=== PATIENT | female | born 1945 | race Caucasian/White ===

== ENCOUNTER → 2016-07-05 08:48 | Outpatient (CLI) | payer MEDICARE, OTHER ==
[2014-03-24 13:13] VITALS: BMI 31.3
[~2016-07-05 08:48] MED LIST: BAYER CHEWABLE81 MG PO; CATAPRES0.1 MG PO; FISH OIL 1,0001 CA1 PO; MULTI-DAY VITAM1 TAB PO; NAPROSYN500 MG PO; NEXIUM40 MG PO; PACERONE400 MG PO; TENORMIN100 MG PO; VITAMIN C1000 MG PO; VITAMIN E400 UNI2 PO; VYTORIN 10-40 M1 TAB PO; WELLBUTRIN SR150 MG PO
[2016-07-05 09:29] LABS: BILIRUBIN - DIRECT 0.15 mg/dL (0.00-0.30); BILIRUBIN - INDIRECT 0.51 mg/dL (0.00-1.00); BILIRUBIN - TOTAL 0.66 mg/dL (0.2-1.3); PROTEIN - SERUM 7.5 g/dL (6.4-8.2)
== END | disposition home or self-care (01) ==
LOC: D.US 08:48
PROVIDERS: Internal Medicine Gastroenterology
DX: K76.0 Fatty (change of) liver, not elsewhere classified (principal)

== ENCOUNTER → 2017-01-02 07:49 | Outpatient (CLI) | payer MEDICARE, OTHER ==
[2014-03-24 13:13] VITALS: BMI 31.3
[2017-01-02 08:57] LABS: ALBUMIN 3.6 g/dL (3.4-5.0); BILIRUBIN - DIRECT 0.11 mg/dL (0.00-0.30); BILIRUBIN - INDIRECT 0.64 mg/dL (0.00-1.00); BILIRUBIN - TOTAL 0.75 mg/dL (0.2-1.3); PROTEIN - SERUM 7.6 g/dL (6.4-8.2)
== END | disposition home or self-care (01) ==
LOC: D.US 07:49
PROVIDERS: Internal Medicine Gastroenterology
DX: K76.0 Fatty (change of) liver, not elsewhere classified (principal)

== ENCOUNTER → 2017-05-08 13:05 | Outpatient (CLI) | payer MEDICARE ==
[~2017-05-08] VITALS: Ht 170.2 cm; Wt 109.3 kg
[2017-05-08 14:52] VITALS: Ht 170.2 cm; Wt 109.3 kg
== END | disposition home or self-care (01) ==
LOC: D.FANS 13:00
DX: E66.01 Morbid (severe) obesity due to excess calories (principal)

== ENCOUNTER → 2017-07-09 08:04 | Outpatient (CLI) | payer MEDICARE, OTHER ==
[2017-05-08 14:52] VITALS: BMI 37.7
[2017-07-09 09:17] LABS: ALBUMIN 3.8 g/dL (3.4-5.0); BILIRUBIN - DIRECT 0.11 mg/dL (0.00-0.30); BILIRUBIN - INDIRECT 0.47 mg/dL (0.00-1.00); BILIRUBIN - TOTAL 0.58 mg/dL (0.2-1.3); PROTEIN - SERUM 7.5 g/dL (6.4-8.2)
== END | disposition home or self-care (01) ==
LOC: D.US 08:04
PROVIDERS: Internal Medicine Gastroenterology
DX: K76.0 Fatty (change of) liver, not elsewhere classified (principal)

== ENCOUNTER → 2017-08-09 08:58 | Outpatient (CLI) | payer MEDICARE, OTHER ==
[2017-05-08 14:52] VITALS: BMI 37.7
[~2017-08-09 08:58] MED LIST changes: +ANORO ELLIPTA1 EACH INH; +BREO ELLIPTA 11 EACH INH; +CARDIZEM120 MG PO; +CARTIA XT120 MG PO; +CINNAMON500 MG PO; +COZAAR100 MG PO; +FLOMAX0.4 MG PO; +FUROSEMIDE20 MG PO; +HYDROCODON-ACE1 EAC7 PO; +LOFIBRA134 MG PO; +LUTEIN/ZEAXANTHIN PO; +MUCINEX DM ER1 EAC1 PO; +TIAZAC/CARDIZE120 MG PO; +ZOFRAN ODT4 MG/UDTAB PO
== END | disposition home or self-care (01) ==
LOC: D.RT 08:58
DX: J44.9 Chronic obstructive pulmonary disease, unspecified (principal)

== ENCOUNTER 2017-08-16 07:45 | Outpatient (CLI) | payer MEDICARE, OTHER ==
[2017-05-08 14:52] VITALS: BMI 37.7
[~2017-08-16 07:45] MED LIST changes: -ANORO ELLIPTA1 EACH INH; -BREO ELLIPTA 11 EACH INH; -CARDIZEM120 MG PO; -CARTIA XT120 MG PO; -CINNAMON500 MG PO; -COZAAR100 MG PO; -FLOMAX0.4 MG PO; -FUROSEMIDE20 MG PO; -HYDROCODON-ACE1 EAC7 PO; -LOFIBRA134 MG PO; -LUTEIN/ZEAXANTHIN PO; -MUCINEX DM ER1 EAC1 PO; -TIAZAC/CARDIZE120 MG PO; -ZOFRAN ODT4 MG/UDTAB PO
[2017-10-09] MEDS ORDERED: MUCINEX DM ER1 EAC1 PO (08:29)
[2017-10-09] MEDS ORDERED: LUTEIN/ZEAXANTHIN PO (08:31)
[2017-10-09] MEDS ORDERED: CARTIA XT120 MG PO (08:32)
[2017-10-09] MEDS ORDERED: FLOMAX0.4 MG PO (08:35)
[2017-10-09] MEDS ORDERED: BREO ELLIPTA 11 EACH INH (08:37)
== END 2017-08-16 09:50 ==
LOC: D.OPS 07:45
DX: E66.01 Morbid (severe) obesity due to excess calories (principal)

== ENCOUNTER 2017-08-27 07:45 | Day surgery (SDC) | payer MEDICARE, OTHER ==
[~2017-08-27] VITALS: Ht 170.2 cm; Wt 113.6 kg
[2017-08-27] MEDS ORDERED: CARDIZEM120 MG PO (08:13)
[2017-08-27] MEDS ORDERED: FUROSEMIDE20 MG PO (08:13)
[2017-08-27] MEDS ORDERED: LOFIBRA134 MG PO (08:14)
[2017-08-27] MEDS ORDERED: COZAAR100 MG PO (08:14)
[2017-08-27] MEDS ORDERED: CINNAMON500 MG PO (08:15)
[2017-08-27] MEDS ORDERED: ANORO ELLIPTA1 EACH INH (08:15)
[2017-08-27 08:30] VITALS: BP 131/74; Ht 170.2 cm; Wt 113.6 kg
[2017-08-27 09:22] LABS: HEMATOCRIT 42.9 % (36.0-48.0); HEMOGLOBIN 14.2 g/dL (12-16); MCH 30.8 pg (26.0-34.0); MCHC 33.1 g/dL (31.0-37.0); MCV 93.1 fL (80.0-100.0); MEAN PLATELET VOLUME 11.6 fL (7.4-10.4); RBC 4.61 10x6/uL (4.00-5.40); RDW 13.3 % (11.5-14.5); WBC 7.5 10x3/uL (4.8-10.8)
[2017-10-09] MEDS ORDERED: MUCINEX DM ER1 EAC1 PO (08:29)
[2017-10-09] MEDS ORDERED: LUTEIN/ZEAXANTHIN PO (08:31)
[2017-10-09] MEDS ORDERED: CARTIA XT120 MG PO (08:32)
[2017-10-09] MEDS ORDERED: FLOMAX0.4 MG PO (08:35)
[2017-10-09] MEDS ORDERED: BREO ELLIPTA 11 EACH INH (08:37)
== END 2017-08-27 11:50 | disposition home or self-care (01) ==
LOC: D.OPS 07:45
PROVIDERS: Surgery
DX: K21.0 Gastro-esophageal reflux disease with esophagitis (principal); K44.9 Diaphragmatic hernia without obstruction or gangrene; K22.10 Ulcer of esophagus without bleeding; K29.50 Unspecified chronic gastritis without bleeding; K29.80 Duodenitis without bleeding; Z01.812 Encounter for preprocedural laboratory examination

== ENCOUNTER 2017-10-10 08:00 | Inpatient (IN) | payer MEDICARE, OTHER ==
[2017-10-09 09:52] LABS: HEMATOCRIT 41.3 % (36.0-48.0); HEMOGLOBIN 13.5 g/dL (12-16); MCH 30.4 pg (26.0-34.0); MCHC 32.7 g/dL (31.0-37.0); MEAN PLATELET VOLUME 10.8 fL (7.4-10.4); RBC 4.44 10x6/uL (4.00-5.40); RDW 13.1 % (11.5-14.5); WBC 6.5 10x3/uL (4.8-10.8)
[2017-10-09 10:02] LABS: CALC OSMOLALITY 283 mosm/kg (275-300); CALCIUM 8.7 mg/dL (8.5-10.1); CARBON DIOXIDE 25.9 mmol/L (21.0-32.0); CHLORIDE - SERUM 107 mmol/L (98-107); CREATININE - SERUM 0.8 mg/dL (0.6-1.3); GLUCOSE 120 mg/dL (74-106); POTASSIUM - SERUM 4.4 mmol/L (3.5-5.1); SODIUM 141 mmol/L (136-145); UREA NITROGEN 18 mg/dL (7-18); eGFR NON AFRICAN AMERICAN 75 mL/min (90-120)
[~2017-10-10] VITALS: Ht 170.2 cm; Wt 113.2 kg
--- NOTE | ~2017-10-10 | DS ---
PATIENT:DREW GARDUNO :47 MEDICAL RECORD: [id number] DISCHARGE SUMMARY ADMISSION DATE: 10/10/17 DISCHARGE DATE: 10/11/17 DATE OF ADMISSION: 10/10/2017. DATE OF DISCHARGE: 10/11/2017. ADMITTING PHYSICIAN: William Diallo MD DISCHARGE PHYSICIAN: William Diallo MD ADMISSION DIAGNOSES: 1. Morbid obesity, body mass index 38-38.9. 2. Gastroesophageal reflux disease. 3. Hyperlipidemia. 4. Chronic obstructive pulmonary disease. 5. Diaphragmatic hernia without obstruction. PROCEDURE PERFORMED: Laparoscopic hiatal hernia repair and laparoscopic vertical sleeve gastrectomy. HOSPITAL COURSE: This is a 71-year-old female who was admitted to the hospital for an elective laparoscopic sleeve gastrectomy and hiatal hernia repair. The patient tolerated the procedure well and postoperatively was transferred to the floor in stable condition. She was started on a bariatric phase 1 clear liquid diet. On postoperative day #1, she had a Gastrografin swallow that was within normal limits. She was advanced to a bariatric phase 2 liquid diet at that time. At the time of discharge, the patient was tolerating her diet. She was ambulating independently. Her pain was well controlled on oral pain medicines. DISCHARGE MEDICATIONS: Please see the electronic medical record for full list of discharge medications. DISCHARGE CONDITION: Stable. FOLLOWUP: Dr. Diallo in 2 weeks. DISCHARGE DIET: Bariatric liquid diet phase 2 for 2 weeks. WOUND CARE: The patient may shower, soap and water to the wound daily. DISCHARGE ACTIVITY: As tolerated, no restrictions. TRANSINT:[id number] Voice Confirmation ID: [id number] DOCUMENT ID: [id number] WILLIAM DIALLO MD at 1410 CC: [id number] DICTATION DATE: 10/26/17 09 PRODUCTION MINER: 10/26/17 1053 DIS IN 10/11/17 [id number] [place] [id number]
[~2017-10-10 08:00] MED LIST changes: +ANORO ELLIPTA1 EACH INH; +BREO ELLIPTA 11 EACH INH; +CARDIZEM120 MG PO; +CARTIA XT120 MG PO; +CINNAMON500 MG PO; +COZAAR100 MG PO; +FLOMAX0.4 MG PO; +FUROSEMIDE20 MG PO; +LOFIBRA134 MG PO; +LUTEIN/ZEAXANTHIN PO; +MUCINEX DM ER1 EAC1 PO
[2017-10-10] MEDS ORDERED: TIAZAC/CARDIZE120 MG PO (08:01)
[2017-10-10 08:10] VITALS: BP 166/76; BMI 39.4
[2017-10-10 12:39] VITALS: BP 159/86
[2017-10-10 18:32] VITALS: BP 159/86; Ht 170.2 cm; Wt 113.2 kg
[2017-10-10 18:59] VITALS: BP 158/71
[2017-10-10 20:07] VITALS: BP 120/53
[2017-10-11 04:25] VITALS: BP 170/80
[2017-10-11 06:18] LABS: BASOPHILS 0 % (0-2); EOSINOPHILS 0 % (0-7); HEMATOCRIT 35.7 % (36.0-48.0); HEMOGLOBIN 11.5 g/dL (12-16); IMMATURE GRANULOCYTES 0.4 % (0-5); LYMPHOCYTES 14.3 % (15-50); MCH 29.9 pg (26.0-34.0); MCHC 32.2 g/dL (31.0-37.0); MEAN PLATELET VOLUME 10.9 fL (7.4-10.4); NEUTROPHILS 79.3 % (40-80); PLATELET COUNT 258 10x3/uL (130-400); RBC 3.84 10x6/uL (4.00-5.40); RDW 13.5 % (11.5-14.5)
[2017-10-11 06:26] LABS: WBC 11.3 10x3/uL (4.8-10.8)
[2017-10-11 06:55] LABS: ALBUMIN 2.9 g/dL (3.4-5.0); ANION GAP 13.2 mmol/L (8-16); BILIRUBIN - TOTAL 0.5 mg/dL (0.2-1.3); CALCIUM 8.6 mg/dL (8.5-10.1); CARBON DIOXIDE 24.8 mmol/L (21.0-32.0); CREATININE - SERUM 1.1 mg/dL (0.6-1.3); PROTEIN - SERUM 6.4 g/dL (6.4-8.2)
[2017-10-11 08:59] VITALS: BP 150/60
[2017-10-11 12:48] VITALS: BP 151/67
[2017-10-11] MEDS ORDERED: HYDROCODON-ACE1 EAC7 PO (15:39)
[2017-10-11] MEDS ORDERED: ZOFRAN ODT4 MG/UDTAB PO (15:39)
[2017-10-11 16:15] VITALS: BP 151/51
== END 2017-10-11 17:00 | disposition home or self-care (01) | DRG 621 ==
LOC: D.MS 08:00 → D.SDCHOLD 08:00 → D.MS 12:26
PROVIDERS: Anesthesiology; Surgery
PROC: 0DB64Z3 Excision of Stomach, Percutaneous Endoscopic Approach, Vertical (ICD-10-PCS; principal; 2017-10-10 09:00)
PROC: 0BQT4ZZ Repair Diaphragm, Percutaneous Endoscopic Approach (ICD-10-PCS; 2017-10-10 09:00)
DX: E66.01 Morbid (severe) obesity due to excess calories (principal); Z68.38 Body mass index [BMI] 38.0-38.9, adult; K21.9 Gastro-esophageal reflux disease without esophagitis; E78.5 Hyperlipidemia, unspecified; J44.9 Chronic obstructive pulmonary disease, unspecified; K44.9 Diaphragmatic hernia without obstruction or gangrene

== ENCOUNTER → 2018-01-10 08:37 | Outpatient (CLI) | payer MEDICARE, OTHER ==
[2017-10-10 18:32] VITALS: BMI 39.1
[~2018-01-10 08:37] MED LIST changes: +HYDROCODON-ACE1 EAC7 PO; +TIAZAC/CARDIZE120 MG PO; +ZOFRAN ODT4 MG/UDTAB PO
[2018-01-10 09:21] LABS: BASOPHILS 0.5 % (0-2); EOSINOPHILS 2.5 % (0-7); HEMATOCRIT 43.9 % (36.0-48.0); HEMOGLOBIN 14.7 g/dL (12-16); IMMATURE GRANULOCYTES 0.4 % (0-5); MCH 30.4 pg (26.0-34.0); MCHC 33.5 g/dL (31.0-37.0); MCV 90.9 fL (80.0-100.0); MEAN PLATELET VOLUME 11.2 fL (7.4-10.4); MONOCYTES 7.2 % (2-11); NEUTROPHILS 47.4 % (40-80); PLATELET COUNT 212 10x3/uL (130-400); RBC 4.83 10x6/uL (4.00-5.40); RDW 13.1 % (11.5-14.5); WBC 5.6 10x3/uL (4.8-10.8)
[2018-01-10 09:31] LABS: ALBUMIN 3.3 g/dL (3.4-5.0); CREATININE - SERUM 0.7 mg/dL (0.6-1.3)
[2018-01-10 09:46] LABS: BILIRUBIN - TOTAL 1.1 mg/dL (0.2-1.3); PROTEIN - SERUM 7.1 g/dL (6.4-8.2)
[2018-01-10 09:55] LABS: BILIRUBIN - DIRECT 0.2 mg/dL (0.00-0.30); BILIRUBIN - INDIRECT 0.9 mg/dL (0.00-1.00)
== END | disposition home or self-care (01) ==
LOC: D.US 01-09 08:30 → D.LAB 01-09 09:00 → D.US 08:30
PROVIDERS: Internal Medicine Gastroenterology
DX: Z01.812 Encounter for preprocedural laboratory examination (principal); K21.9 Gastro-esophageal reflux disease without esophagitis; J44.9 Chronic obstructive pulmonary disease, unspecified; I10 Essential (primary) hypertension; E78.5 Hyperlipidemia, unspecified; K76.0 Fatty (change of) liver, not elsewhere classified

== ENCOUNTER → 2018-07-15 08:38 | Outpatient (CLI) | payer MEDICARE, OTHER ==
[2017-10-10 18:32] VITALS: BMI 39.1
[2018-07-15 09:54] LABS: ALBUMIN 3.4 g/dL (3.4-5.0); BILIRUBIN - DIRECT 0.18 mg/dL (0.00-0.30); BILIRUBIN - INDIRECT 0.83 mg/dL (0.00-1.00); BILIRUBIN - TOTAL 1.01 mg/dL (0.2-1.3)
== END | disposition home or self-care (01) ==
LOC: D.US 08:30
PROVIDERS: Internal Medicine Gastroenterology
DX: K76.0 Fatty (change of) liver, not elsewhere classified (principal)

== ENCOUNTER → 2018-07-29 08:49 | Outpatient (CLI) | payer MEDICARE, OTHER ==
[2017-10-10 18:32] VITALS: BMI 39.1
[2018-07-29 09:39] LABS: BASOPHILS 0.7 % (0-2); HEMATOCRIT 44.9 % (36.0-48.0); HEMOGLOBIN 14.7 g/dL (12-16); IMMATURE GRANULOCYTES 0.2 % (0-5); LYMPHOCYTES 39.5 % (15-50); MCH 30.6 pg (26.0-34.0); MCHC 32.7 g/dL (31.0-37.0); MCV 93.5 fL (80.0-100.0); MEAN PLATELET VOLUME 11.6 fL (7.4-10.4); MONOCYTES 6.7 % (2-11); NEUTROPHILS 49.9 % (40-80); PLATELET COUNT 213 10x3/uL (130-400); RDW 13.1 % (11.5-14.5); WBC 6.1 10x3/uL (4.8-10.8)
[2018-07-29 09:56] LABS: CREATININE - SERUM 0.7 mg/dL (0.6-1.3)
== END | disposition home or self-care (01) ==
LOC: D.LAB 08:49
PROVIDERS: Surgery
DX: Z01.812 Encounter for preprocedural laboratory examination (principal); J44.9 Chronic obstructive pulmonary disease, unspecified; I10 Essential (primary) hypertension; E78.5 Hyperlipidemia, unspecified

== ENCOUNTER → 2018-11-22 11:11 | Outpatient (CLI) | payer MEDICARE, OTHER ==
[2017-10-10 18:32] VITALS: BMI 39.1
[2018-11-22 11:46] LABS: BASOPHILS 0.3 % (0-2); EOSINOPHILS 2.6 % (0-7); HEMATOCRIT 43.3 % (36.0-48.0); HEMOGLOBIN 14.7 g/dL (12-16); IMMATURE GRANULOCYTES 0.1 % (0-5); LYMPHOCYTES 39.2 % (15-50); MCH 30.8 pg (26.0-34.0); MCHC 33.9 g/dL (31.0-37.0); MCV 90.6 fL (80.0-100.0); MEAN PLATELET VOLUME 11.3 fL (7.4-10.4); NEUTROPHILS 49.8 % (40-80); PLATELET COUNT 231 10x3/uL (130-400); RBC 4.78 10x6/uL (4.00-5.40); RDW 13.1 % (11.5-14.5); WBC 7.3 10x3/uL (4.8-10.8)
[2018-11-22 12:07] LABS: ALBUMIN 3.7 g/dL (3.4-5.0); ALKALINE PHOSPHATASE 94 U/L (46-116); ALT (SGPT) 23 U/L (10-68); CALC OSMOLALITY 285 mosm/kg (275-300); CALCIUM 8.9 mg/dL (8.5-10.1); CARBON DIOXIDE 29.1 mmol/L (21.0-32.0); CHLORIDE - SERUM 106 mmol/L (98-107); CHOL - HDL RATIO 2.8 ratio (2.3-4.1); CHOLESTEROL, TOTAL 148 mg/dL (0-200); CREATININE - SERUM 0.7 mg/dL (0.6-1.3); GLUCOSE 100 mg/dL (74-106); HDL CHOLESTEROL 53 mg/dL (32-96); LDL CHOLESTEROL 51 mg/dL (0-100); POTASSIUM - SERUM 4.7 mmol/L (3.5-5.1); PROTEIN - SERUM 7.4 g/dL (6.4-8.2); SODIUM 143 mmol/L (136-145); TRIGLYCERIDE 224 mg/dL (30-200); UREA NITROGEN 14 mg/dL (7-18); eGFR NON AFRICAN AMERICAN 87 mL/min (90-120)
== END | disposition home or self-care (01) ==
LOC: D.LAB 11:11
PROVIDERS: ATTEND Surgery
DX: Z01.812 Encounter for preprocedural laboratory examination (principal); J44.9 Chronic obstructive pulmonary disease, unspecified; K21.9 Gastro-esophageal reflux disease without esophagitis; I10 Essential (primary) hypertension; E78.5 Hyperlipidemia, unspecified

== ENCOUNTER → 2019-01-09 07:35 | Outpatient (CLI) | payer MEDICARE, OTHER ==
[2017-10-10 18:32] VITALS: BMI 39.1
[2019-01-09 08:22] LABS: ALBUMIN 3.6 g/dL (3.4-5.0); BILIRUBIN - DIRECT 0.21 mg/dL (0.00-0.30); BILIRUBIN - INDIRECT 1.01 mg/dL (0.00-1.00); BILIRUBIN - TOTAL 1.22 mg/dL (0.2-1.3); PROTEIN - SERUM 7.3 g/dL (6.4-8.2)
== END | disposition home or self-care (01) ==
LOC: D.US 01-06 09:00
PROVIDERS: ATTEND Internal Medicine Gastroenterology
DX: K76.0 Fatty (change of) liver, not elsewhere classified (principal)

== ENCOUNTER → 2019-07-01 07:21 | Outpatient (CLI) | payer MEDICARE, OTHER ==
[2017-10-10 18:32] VITALS: BMI 39.1
== END | disposition home or self-care (01) ==
LOC: D.RAD 07:21
PROVIDERS: ATTEND Emergency Medicine
DX: R10.33 Periumbilical pain (principal)

== ENCOUNTER → 2019-10-17 08:06 | Outpatient (CLI) | payer MEDICARE, OTHER ==
[2017-10-10 18:32] VITALS: BMI 39.1
== END | disposition home or self-care (01) ==
LOC: D.CT 08:06
PROVIDERS: ATTEND Surgery
DX: K43.2 Incisional hernia without obstruction or gangrene (principal)